=== PATIENT | female | born 1940 | race Caucasian/White ===

== ENCOUNTER 2019-02-16 12:57 | Emergency (ER) | payer MEDICARE, MEDICAID, SELFPAY ==
[2019-02-16 13:00] VITALS: BP 138/88; PULSE 71; RESP 16; TEMP 36.6; O2SAT 97
--- NOTE | 2019-02-16 13:17 | ED.GENADUL_ITS ---
Discharge Plan Disposition Patient Disposition: HOME Condition: Stable Discharge Details Chief Complaint: Vascular Clinical Impression: Acute superficial venous thrombosis of left lower extremity Primary Care Provider: Gerardo Alves ED Provider: Emily Lopez Home Meds and New Rx's Prescriptions: Discontinued ibuprofen 200 MG tablet 200 mg PO Q4H PRN RF: 0 No Action metoprolol succinate [Toprol XL] 200 mg tablet extended release 24 hr 200 mg PO DAILY Qty: 90 RF: 3 nitroglycerin [Nitrostat] 0.3 mg tablet, sublingual 0.3 mg Sublingual as directed Qty: 100 RF: 6 hydrocodone-acetaminophen 5-325 mg tablet 1 tab PO Q6H MDD 20 mg hydrocodone PRN (Reason: pain) Qty: 20 RF: 0 acetaminophen [Tylenol Arthritis Pain] 650 MG tablet extended release 650 mg PO BID PRNQty: 60 RF: 0 ezetimibe [Zetia] 10 MG tablet 10 mg PO DAILY RF: 0 aspirin [Aspir-81] 81 MG tablet,delayed release (DR/EC) 81 mg PO DAILY 100 Days Qty: 100 RF: 3 levothyroxine 25 mcg tablet 25 mcg PO DAILY Qty: 90 RF: 3 amlodipine 5 mg tablet 5 mg PO DAILY Qty: 90 RF: 3 isosorbide mononitrate 120 mg tablet extended release 24 hr 120 mg PO DAILY RF: 0 furosemide 20 mg tablet 20 mg PO DAILY RF: 0 nitroglycerin 0.4 mg/hr patch 24 hour 1 patch TD DAILY RF: 0 hydrochlorothiazide 12.5 mg tablet 12.5 mg PO DAILY Qty: 90 RF: 3 rivaroxaban 20 mg tablet 20 mg PO DAILY Qty: 60 RF: 0 Discharge Instructions Instructions: Rivaroxaban (By mouth), Deep Venous Thrombosis (ED) Additional Instructions: Please return immediately to the emergency department if you develop any new or worsening symptoms, if your condition does not improve as expected, or if you become otherwise concerned. It is extremely important that you call as soon as possible to schedule an appointment to be seen in follow-up for this visit by your primary care doctor. Referrals: Gerardo Alves DO [Primary Care Provider] - Discharge Data Discharge Date/Time-TO BE ENTERED AT DEPARTURE: 02/16/19 15:56 Medical Decision Making Lori Owen is a 78 y/o woman with history of hypothyroidism, coronary artery disease status post stent, hyperlipidemia who presented to the emergency department with left lower leg pain, swelling, redness. On exam patient is very well and nontoxic appearing. Benign cardiopulmonary exam. Approximately 8 cm area of localized edema tenderness and induration with faint overlying erythema to the left proximal medial lower leg. Chronic peripheral edema and varicose veins bilaterally. DP pulses intact and symmetric. Concern for superficial venous thrombosis versus deep venous thrombosis. Doubt cellulitis. Exam/history is not consistent with abscess, myositis, sepsis, acute arterial pathology, acute bony pathology, necrotizing fasciitis. Plan for ultrasound. US shows superficial venous thrombosis of the saphenous vein. Clot would be considered complicated as it extends further than 5 cm. Per current recommendations, plan to treat with 10 mg Xarelto daily. No evidence of cellulitis or phlebitis. Plan for screening labs. Lab work okay, will continue with Xarelto. I had a lengthy discussion with the patient regarding return to emergency department precautions, home care, and importance of outpatient follow-up with her PCP. Patient verbalized understanding the plan was amenable. All questions were answered. Patient was discharged home with clear plan for outpatient follow-up. Medical Records Medical records reviewed: Yes I reviewed the patient's medical records. Imaging Data Radiologic Study: Attestation: I personally reviewed and interpreted this imaging study as follows: Radiologist's impression: LEFT LOWER EXTREMITY ULTRASOUND: The saphenous vein is dilated and contains thrombus extending from just above the knee through the ankle. Femoral and popliteal veins and deep calf veins appear free of thrombus. There are reactive lymph nodes in the groin region. IMPRESSION: Superficial venous thrombosis in the saphenous vein. Lab Data Lab results reviewed: Yes I reviewed the patient's lab results. Laboratory Tests Range/Units 02/16/19 02/16/19 02/16/19 14:59 14:59 14:59 WBC (4.4-10.8) k/cumm 7.85 RBC (4.00-5.20) m/cumm 4.51 Hgb (12.0-15.5) g/dL 14.0 Hct (36.0-46.0) % 42.9 MCV (80-95) fL 95.1 H MCH (27.0-33.0) pg 31.0 MCHC (32.0-36.0) g/dL 32.6 RDW (11.7-14.6) % 13.7 Plt Count (130-400) x1000/uL 230 MPV (8.0-11.0) fL 10.0 Immature Gran % 0.1 Neutrophils % 72.0 Lymphocytes % 17.1 Monocytes % 7.8 Eosinophils % 2.9 Basophils % 0.1 Absolute Neutrophils (1.2-6.7) k/cumm 5.65 Absolute Lymphocytes (1.2-3.4) k/cumm 1.34 Absolute Monocytes (0.11-0.7) k/cumm 0.61 Absolute Eosinophils (0.0-0.7) k/cumm 0.23 Absolute Basophils (0.0-0.2) k/cumm 0.01 PT (9.3-11.0) sec 9.6 INR (0.9-1.1) 1.0 Sodium (136-145) mmol/L 142 Potassium (3.5-5.1) mmol/L 4.1 Chloride (98-107) mmol/L 103 Carbon Dioxide (21.0-32.0) mmol/L 29.6 Anion Gap (3-11) mmol/L 9.4 BUN (7-18) mg/dL 14 Creatinine (0.55-1.02) mg/dL 0.59 Estimated GFR/1.73 m2 (mL/min/1.73m2) >= 60.00 Glucose (70-100) mg/dL 96 Calcium (8.5-10.1) mg/dL 9.1 Total Bilirubin (0.2-1.0) mg/dL 0.4 AST (15-37) U/L 16 ALT (14-59) U/L 21 Alkaline Phosphatase (46-116) U/L 78 Total Protein (6.4-8.2) g/dL 8.0 Albumin (3.4-5.0) g/dL 4.0 HPI General Mode of arrival: ambulatory . Date/Time Provider Initiated Documentation: 02/16/19 13:13 . Limitations to Documentation: no limitations . Information obtained by: patient, RN notes reviewed and old records reviewed . HPI Narrative: Lori Owen is a 78 y/o woman with history of coronary artery disease status post stent, hyperlipidemia, hypothyroidism, hypertension presenting to the emergency department with leg pain and swelling. Patient reports that she noticed pain and swelling yesterday to her left medial proximal lower leg. She reports that she noticed redness to the site this morning, and pain has been worsening. Patient is concerned that she may have a blood clot. Patient reports that she has chronic significant bilateral lower extremity peripheral edema which is unchanged aside from focal swelling as above. Patient reports that otherwise she feels very well in her usual state of health. She reports no new fever, vomiting, diarrhea, shortness of breath, cough, numbness, weakness, or any other pain. Has been eating and drinking as usual. No recent illness. No recent travel or mobilization. Patient currently takes daily aspirin and no other anticoagulation. She has no history of blood clots. Related Data Home Medications Medication Instructions Recorded Confirmed acetaminophen [Tylenol Arthritis 650 mg PO BID PRN #60 tab 02/26/14 02/20/19 Pain] ezetimibe [Zetia] 10 mg PO DAILY tab-cap 07/02/14 02/20/19 aspirin [Aspir-81] 81 mg PO DAILY 100 Days #100 tab 09/06/17 02/20/19 levothyroxine 25 mcg tablet 25 mcg PO DAILY #90 tab 04/24/18 02/20/19 metoprolol succinate 200 mg 200 mg PO DAILY #90 tab 05/19/18 02/20/19 tablet,extended release 24 hr nitroglycerin 0.3 mg sublingual 0.3 mg SUBLINGUAL as directed #100 05/19/18 02/20/19 tablet tab amlodipine 5 mg tablet 5 mg PO DAILY #90 tab-cap 05/27/18 02/20/19 furosemide 20 mg tablet 20 mg PO DAILY tab 07/04/18 02/20/19 isosorbide mononitrate 120 mg 120 mg PO DAILY 07/04/18 02/20/19 tablet,extended release 24 hr nitroglycerin 0.4 mg/hr 1 patch TD DAILY 11/04/18 02/20/19 transdermal 24 hour patch hydrochlorothiazide 12.5 mg tablet 12.5 mg PO DAILY #90 tab 12/04/18 02/20/19 rivaroxaban 20 mg PO DAILY #60 tab 02/18/19 02/20/19 hydrocodone 5 mg-acetaminophen 325 1 tab PO Q6H PRN #20 tab MDD 20 mg 02/20/19 02/20/19 mg tablet hydrocodone Previous Rx's Medication Instructions Recorded aspirin [Aspir-81] 81 mg PO DAILY 100 Days #100 tab 09/06/17 levothyroxine 25 mcg tablet 25 mcg PO DAILY #90 tab 04/24/18 metoprolol succinate 200 mg 200 mg PO DAILY #90 tab 05/19/18 tablet,extended release 24 hr nitroglycerin 0.3 mg sublingual 0.3 mg SUBLINGUAL as directed #100 05/19/18 tablet tab amlodipine 5 mg tablet 5 mg PO DAILY #90 tab-cap 05/27/18 hydrochlorothiazide 12.5 mg tablet 12.5 mg PO DAILY #90 tab 12/04/18 rivaroxaban 20 mg PO DAILY #60 tab 02/18/19 hydrocodone 5 mg-acetaminophen 325 1 tab PO Q6H PRN #20 tab MDD 20 mg 02/20/19 mg tablet hydrocodone Allergies Allergy/AdvReac Type Severity Reaction Status Date / Time codeine Allergy Unknown difficulty Verified 02/20/19 09:05 breathing morphine Allergy Unknown neck Verified 02/20/19 09:05 swelling at marva atorvastatin AdvReac Intermediate muscle and Verified 02/20/19 09:05 joint pain isosorbide AdvReac Intermediate Headache Verified 02/20/19 09:05 lisinopril AdvReac Intermediate possible Verified 02/20/19 09:[address] rosuvastatin calcium AdvReac Intermediate MUSCLE/JOINT Verified 02/20/19 09:05 [From Crestor] PAIN pravastatin AdvReac Unknown knee pain Verified 02/20/19 09:05 simvastatin AdvReac Unknown muscle Verified 02/20/19 09:05 pain distal General Stated Complaint: GenMedical TOYA: 4 Review of Systems Review of Systems Constitutional: denies fevers Eyes: denies eye pain ENT: denies facial pain, dental pain, sore throat Cardiovascular: denies chest pain, reports chronic unchanged bilateral lower leg edema Respiratory: denies SOB, cough GI: denies abdominal pain, vomiting, diarrhea : denies flank pain MSK: denies back pain, neck pain, arthralgias, reports pain to the left lower leg as per HPI Skin: denies rash Neuro: denies headaches, numbness, weakness PFSH Medical History (Updated 02/20/19 @ 09:28 by Gerardo Alves DO) Greater saphenous vein embolism (Acute) Surgical History Abdominal hysterectomy (~1971) cardiac catherization (07/08/15) [facility] [place] coronaries iwth previous stent patent Excision lesion R neck ulcerated (02/15/15) Dr. 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 Pets and animals: Yes Pets and animals: cat(s) What type of physical activity do you participate in: walking Frequency: 3-4 times per week Do you feel safe at home: Yes Do you feel safe in your relationship?: Yes Exam Narrative Exam Narrative: Constitutional: well and [id number], pleasant, conversing normally HENT: head atraumatic/normocephalic/normal inspection, mucous membranes moist Eyes: conjunctiva normal, sclera normal, pupils 3mm b/l Neck: no stridor, normal ROM, trachea midline Chest: normal inspection Resp: normal work of breathing, LCTAB Cardio: normal rate, normal rhythm, no murmur appreciated Back: normal inspection, no rash Skin: warm, dry, normal color, no rash Neuro: alert, not altered, grossly non-focal, normal tone Ext: Approximately 8 cm area of localized edema tenderness and induration with faint overlying erythema to the left proximal medial lower leg. Chronic peripheral edema and varicose veins bilaterally. DP pulses intact and symmetric. No posterior calf tenderness to palpation. Psych: normal mood, normal affect, normal behavior Course Vital Signs Temperature 36.6 C 02/16/19 13:00 Pulse 71 02/16/19 13:00 Respiratory Rate 16 02/16/19 13:00 Blood Pressure 138/88 02/16/19 13:00 Pulse Oximetry 97 02/16/19 13:00 Temperature 36.6 C 02/16/19 13:00 Temperature Source Skin 02/16/19 13:00 Pulse 71 02/16/19 13:00 Respiratory Rate 16 02/16/19 13:00 Respiratory Effort Non-Labored 02/16/19 13:04 Blood Pressure 138/88 02/16/19 13:00 Pulse Oximetry 97 02/16/19 13:00 Oxygen Delivery Method Room Air 02/16/19 13:00 Oxygen Flow Rate 0 02/16/19 13:00 Pain Level 5 02/16/19 13:00 Comment 02/16/19 13:00
--- NOTE | 2019-02-16 13:20 | DI.US_ITS ---
SYMPTOM/DIAGNOSIS: LEG PAIN, SWELLING LEFT LOWER EXTREMITY ULTRASOUND: The saphenous vein is dilated and contains thrombus extending from just above the knee through the ankle. Femoral and popliteal veins and deep calf veins appear free of thrombus. There are reactive lymph nodes in the groin region. IMPRESSION: Superficial venous thrombosis in the saphenous vein.
[2019-02-16] MEDS: Rivaroxaban 10 MG TABLET PO (14:54)
[2019-02-16 14:56] VITALS: RESP 18
[2019-02-16 15:02] LABS: Abs Immature Grans 0.01 k/cumm (0.0-0.09); Absolute Basophil Count 0.01 k/cumm (0.0-0.2); Absolute Eosinophil Count 0.23 k/cumm (0.0-0.7); Absolute Lymphocyte Count 1.34 k/cumm (1.2-3.4); Absolute Monocyte Count 0.61 k/cumm (0.11-0.7); Absolute Neutrophil Count 5.65 k/cumm (1.2-6.7); Basophils % 0.1; Eosinophils % 2.9; HCT 42.9 % (36.0-46.0); Immature Grans % 0.1; Lymphocytes % 17.1; Mean Corp. HGB Concentration 32.6 g/dL (32.0-36.0); Mean Corpuscular Volume 95.1 fL (80-95); Monocytes % 7.8; Platelet Count 230 x1000/uL (130-400); RBC 4.51 m/cumm (4.00-5.20); RBC Distribution Width 13.7 % (11.7-14.6); White Blood Cell Count 7.85 k/cumm (4.4-10.8)
[2019-02-16 15:10] VITALS: BP 109/73; PULSE 67; RESP 18; TEMP 36.7; O2SAT 97
[2019-02-16 15:14] LABS: Prothrombin Time 9.6 sec (9.3-11.0)
[2019-02-16 15:18] LABS: ALT 21 U/L (14-59); AST 16 U/L (15-37); Alkaline Phosphatase 78 U/L (46-116); Anion Gap 9.4 mmol/L (3-11); BUN 14 mg/dL (7-18); Bilirubin, Total 0.4 mg/dL (0.2-1.0); CO2 29.6 mmol/L (21.0-32.0); CREATININE 0.59 mg/dL (0.55-1.02); Calcium 9.1 mg/dL (8.5-10.1); Chloride 103 mmol/L (98-107); Glucose 96 mg/dL (70-100); Potassium 4.1 mmol/L (3.5-5.1); Sodium 142 mmol/L (136-145)
--- NOTE | 2019-02-16 17:34 | NUR.NOTE ---
Referral faxed to [facility], Dr. Alves.Nursing Note:
== END 2019-02-16 15:56 | disposition home or self-care (01) ==
PROVIDERS: Emergency Provider Student in an Organized Health Care Education/Training Program; PCP Family Medicine
DX: I82.812 Embolism and thrombosis of superficial veins of left lower extremity (principal); I83.899 Varicose veins of unspecified lower extremity with other complications; I10 Essential (primary) hypertension; Z79.82 Long term (current) use of aspirin
CPT/HCPCS: 36415; 80053; 99284; 85025; 85610; 93971

== ENCOUNTER 2019-02-18 09:54 | Emergency (ER) | payer MEDICARE, MEDICAID, SELFPAY ==
[2019-02-18 09:56] VITALS: BP 142/95; PULSE 95; RESP 18; TEMP 36.7; O2SAT 97
--- NOTE | 2019-02-18 10:01 | DI.US_ITS ---
SYMPTOM/DIAGNOSIS: KNOWN DVT, PAIN IS MOVING PROXIMAL LEFT LOWER EXTREMITY ULTRASOUND: Comparison is made with 02/16/19. The deep veins of the left lower extremity show normal compression, augmentation and color flow. There is no evidence of a deep venous thrombus. There is thrombus again seen in the greater saphenous vein. There does appear to be mild progression of the thrombus proximally. No involvement of the saphenofemoral junction is seen. Note is made of a 5 by 1.3 by 3.8 cm. Sosa's cyst. IMPRESSION: 1. Slight proximal extension of the previously noted greater saphenous vein thrombophlebitis. 2. No evidence of a left lower extremity deep venous thrombus. The findings were discussed with Dr Solorzano of the ER on the date of the examination.
--- NOTE | 2019-02-18 10:08 | W.ED.GENAD ---
Discharge Plan Disposition Patient Disposition: HOME Condition: Good Discharge Details Chief Complaint: Recheck Clinical Impression: DVT (deep venous thrombosis) Primary Care Provider: Gerardo Alves ED Provider: Barrington Solorzano Home Meds and New Rx's Prescriptions: New rivaroxaban 20 mg tablet 20 mg PO DAILY Qty: 60 RF: 0 Continued metoprolol succinate [Toprol XL] 200 mg tablet extended release 24 hr 200 mg PO DAILY Qty: 90 RF: 3 nitroglycerin [Nitrostat] 0.3 mg tablet, sublingual 0.3 mg Sublingual as directed Qty: 100 RF: 6 acetaminophen [Tylenol Arthritis Pain] 650 MG tablet extended release 650 mg PO BID PRNQty: 60 RF: 0 ezetimibe [Zetia] 10 MG tablet 10 mg PO DAILY RF: 0 aspirin [Aspir-81] 81 MG tablet,delayed release (DR/EC) 81 mg PO DAILY 100 Days Qty: 100 RF: 3 levothyroxine 25 mcg tablet 25 mcg PO DAILY Qty: 90 RF: 3 amlodipine 5 mg tablet 5 mg PO DAILY Qty: 90 RF: 3 isosorbide mononitrate 120 mg tablet extended release 24 hr 120 mg PO DAILY RF: 0 furosemide 20 mg tablet 20 mg PO DAILY RF: 0 nitroglycerin 0.4 mg/hr patch 24 hour 1 patch TD DAILY RF: 0 hydrochlorothiazide 12.5 mg tablet 12.5 mg PO DAILY Qty: 90 RF: 3 Discontinued rivaroxaban 10 mg tablet 10 mg PO DAILY Qty: 30 RF: 0 Discharge Instructions Instructions: Deep Venous Thrombosis (ED) Additional Instructions: At this time your blood clot is still near saphenous vein, does not extended significantly closer to the major vessels. However because of its of location we will recommend increasing your Xarelto/rivaroxaban to 20 mg daily. Please avoid any ibuprofen, or spicy foods. If you notice any worsening of your symptoms, or any new symptoms such as vomiting, diarrhea, fever, chills, shortness of breath, chest pain, numbness, weakness, or fainting , please return immediately to the emergency department for reevaluation. Please follow up with your primary care provider as soon as possible for reassessment and reevaluation. As always, it was a pleasure participating in your medical care today. Referrals: Gerardo Alves DO [Primary Care Provider] - Medical Decision Making This is a 78-year-old female with a past medical history of coronary artery disease with stent, hyperlipidemia, and a recently diagnosed left lower extremity DVT who was started on Xarelto and is been taking a daily as directed. Initially there was tenderness at the medial aspect of her left calf, however now the tenderness has transitioned proximally to the medial aspect of the knee and slightly higher. Patient is concerned about this transition. Currently the patient shows no evidence of significant neurologic or vascular compromise, mild edema is equivalent bilaterally. Vascular exam is otherwise unremarkable. Concern for enlargement of clot. Patient has no history of malignancy, and no clear clinical indication at this time for Lovenox over Xarelto. With no chest pain, shortness of breath, tachypnea, hypoxemia, pleuritic chest pain or any chest symptoms whatsoever, I do not feel that further cardiac or pulmonary evaluation is indicated clinically at this time. 11:34 AM Patient's ultrasound shows the clot still present in the saphenous vein, distal to the bifurcation. No clinical evidence of a significant DVT at this time, still notably superficial. However with the transition, I do feel that treatment 20 mg daily of Xarelto he is indicated at this time. We will increase her dosing to this. She does have follow-up in 48 hours with her PCP. She continues to demonstrate stable vital signs with no clinical evidence of pulmonary complaint. She is hemodynamically stable. Patient will be discharged home with close follow-up. We discussed red flags which return. I have extensively reviewed the treatment plan and discharge instructions with the patient. I have addressed all patient concerns at this time. The patient was made aware of what symptoms to monitor for that would warrant a return to the emergency department. Discussed the plan with the patient, they demonstrate verbal understanding and agreement with our assessment and plan at this time. HPI General Date/Time Provider Initiated Documentation: 02/18/19 09:55. HPI Narrative: This is a 78 y/o woman with history of hypothyroidism, coronary artery disease status post stent, hyperlipidemia, with recent diagnosis of DVT on 02/16/2019 and started on Xarelto 10 mg daily. She has been taking this as directed. DVT was noted in the left lower extremity. No history of cancer malignancy. Patient states that she had mild tenderness previously in her left calf on the medial aspect however last night and today she noticed that she now has mild pain and tenderness in the medial aspect of the left knee, and slightly more proximally. She denies any chest pain, chest heaviness, shortness of breath, arm, neck, or shoulder pain. She denies any exertional dyspnea. She has been taking her medication daily, at the same time every day with a consistent amount of food. She denies any medical noncompliance. She has no other complaints at this time. No other modifying factors. Related Data Home Medications Medication Instructions Recorded Confirmed acetaminophen [Tylenol Arthritis 650 mg PO BID PRN #60 tab 02/26/14 02/16/19 Pain] ezetimibe [Zetia] 10 mg PO DAILY tab-cap 07/02/14 02/18/19 aspirin [Aspir-81] 81 mg PO DAILY 100 Days #100 tab 09/06/17 02/18/19 levothyroxine 25 mcg tablet 25 mcg PO DAILY #90 tab 04/24/18 02/18/19 metoprolol succinate 200 mg 200 mg PO DAILY #90 tab 05/19/18 02/18/19 tablet,extended release 24 hr nitroglycerin 0.3 mg sublingual 0.3 mg SUBLINGUAL as directed #100 05/19/18 02/18/19 tablet tab amlodipine 5 mg tablet 5 mg PO DAILY #90 tab-cap 05/27/18 02/18/19 furosemide 20 mg tablet 20 mg PO DAILY tab 07/04/18 02/18/19 isosorbide mononitrate 120 mg 120 mg PO DAILY 07/04/18 02/18/19 tablet,extended release 24 hr nitroglycerin 0.4 mg/hr 1 patch TD DAILY 11/04/18 02/18/19 transdermal 24 hour patch hydrochlorothiazide 12.5 mg tablet 12.5 mg PO DAILY #90 tab 12/04/18 02/18/19 rivaroxaban 20 mg PO DAILY #60 tab 02/18/19 Previous Rx's Medication Instructions Recorded aspirin [Aspir-81] 81 mg PO DAILY 100 Days #100 tab 09/06/17 levothyroxine 25 mcg tablet 25 mcg PO DAILY #90 tab 04/24/18 metoprolol succinate 200 mg 200 mg PO DAILY #90 tab 05/19/18 tablet,extended release 24 hr nitroglycerin 0.3 mg sublingual 0.3 mg SUBLINGUAL as directed #100 05/19/18 tablet tab amlodipine 5 mg tablet 5 mg PO DAILY #90 tab-cap 05/27/18 hydrochlorothiazide 12.5 mg tablet 12.5 mg PO DAILY #90 tab 12/04/18 rivaroxaban 20 mg PO DAILY #60 tab 02/18/19 Allergies Allergy/AdvReac Type Severity Reaction Status Date / Time codeine Allergy Unknown difficulty Verified 02/18/19 10:07 breathing morphine Allergy Unknown neck Verified 02/18/19 10:07 swelling at marva atorvastatin AdvReac Intermediate muscle and Verified 02/18/19 10:07 joint pain isosorbide AdvReac Intermediate Headache Verified 02/18/19 10:07 lisinopril AdvReac Intermediate possible Verified 02/18/19 10:[address] rosuvastatin calcium AdvReac Intermediate MUSCLE/JOINT Verified 02/18/19 10:07 [From Crestor] PAIN pravastatin AdvReac Unknown knee pain Verified 02/18/19 10:07 simvastatin AdvReac Unknown muscle Verified 02/18/19 10:07 pain distal General Stated Complaint: Recheck TOYA: 3 Review of Systems Review of Systems All systems reviewed & are unremarkable except as noted in HPI and below PFSH Family History Mother Stroke Father Personal history of malignant neoplasm CA of stomach Social History Smoking/Tobacco Use Status: Former Tobacco Use Alcohol Intake: former Drug use: Never Substance use type: does not use Housing: house Number of Children: 2 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 3.ENT: Atraumatic external nose and ears. Moist MM. Neck: Symmetric, trachea midline, No thyromegaly. 4.CVS: +S1/S2, No murmurs or gallops. Peripheral pulses 2+ and equal in all extremities. Brisk capillary refill in all extremities. 5.RESP: Unlabored respiratory effort. Clear to auscultation bilaterally. No wheezes rales or rhonchi 6.GI: Soft, Nontender/Nondistended, No hepatosplenomegaly. No guarding or rebound. 7.MSK: Normocephalic/Atraumatic, Extremities w/o deformity. No cyanosis or clubbing, Normal movement of all extremities. Left lower extremity demonstrates mild tenderness, minimal swelling on the calf, just medial to the left knee also some mild tenderness, swelling, and ropiness. Trace pitting edema of the lower extremity's bilaterally. Dorsalis pedis and posterior tibial pulses +2 bilaterally, capillary refill normal. Temperature equivalent between both feet. 8.Skin: Warm, Dry. No rashes or lesions. 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 Sensation grossly intact, no focal neurologic deficits. 10.Psych: (AAO) x3. Appropriate mood and affect Course Vital Signs Temperature 36.7 C 02/18/19 09:56 Pulse 95 H 02/18/19 09:56 Respiratory Rate 18 02/18/19 09:56 Blood Pressure 142/95 H 02/18/19 09:56 Pulse Oximetry 97 02/18/19 09:56 Temperature 36.7 C 02/18/19 09:56 Temperature Source Skin 02/18/19 09:56 Pulse 95 H 02/18/19 09:56 Respiratory Rate 18 02/18/19 09:56 Respiratory Effort Non-Labored 02/18/19 10:01 Blood Pressure 142/95 H 02/18/19 09:56 Blood Pressure Position Sitting 02/18/19 09:56 Pulse Oximetry 97 02/18/19 09:56 Oxygen Delivery Method Room Air 02/18/19 09:56 Oxygen Flow Rate 0 02/18/19 09:56
== END 2019-02-18 11:41 | disposition home or self-care (01) ==
PROVIDERS: Emergency Provider Student in an Organized Health Care Education/Training Program; PCP Family Medicine
DX: I82.812 Embolism and thrombosis of superficial veins of left lower extremity (principal); M25.562 Pain in left knee; I25.10 Atherosclerotic heart disease of native coronary artery without angina pectoris; Z95.5 Presence of coronary angioplasty implant and graft; Z79.01 Long term (current) use of anticoagulants
CPT/HCPCS: 99284; 93971

== ENCOUNTER 2019-03-19 09:32 | Outpatient (REF) | payer MEDICARE, MEDICAID, SELFPAY ==
[2019-03-24 11:53] LABS: Helicobacter pylori Ag, Feces Negative (NEGAT)
== END 2019-03-19 09:52 ==
LOC: LBN 09:32
PROVIDERS: PCP Family Medicine; Visit Provider Nurse Practitioner
DX: R10.13 Epigastric pain (principal)
CPT/HCPCS: 87338

== ENCOUNTER 2019-05-20 10:15 | Outpatient (CLI) | payer MEDICARE, SELFPAY ==
[2019-05-20 11:53] LABS: ALT 17 U/L (14-59); AST 12 U/L (15-37); Albumin 3.7 g/dL (3.4-5.0); Alkaline Phosphatase 74 U/L (46-116); Anion Gap 9.3 mmol/L (3-11); BUN 11 mg/dL (7-18); Bilirubin, Total 0.5 mg/dL (0.2-1.0); CO2 29.7 mmol/L (21.0-32.0); CREATININE 0.68 mg/dL (0.55-1.02); Calcium 9.1 mg/dL (8.5-10.1); Calculated LDL 142 mg/dL; Chloride 105 mmol/L (98-107); Cholesterol 209 mg/dL (<200); Glucose 93 mg/dL (74-106); HDL Cholesterol 37 mg/dL (40-60); Potassium 4.3 mmol/L (3.5-5.1); Sodium 144 mmol/L (136-145); TSH (W/Ref FT4) 3.46 uIU/mL (0.36-3.74); Triglyceride 152 mg/dL (<150)
== END 2019-05-20 10:35 ==
PROVIDERS: PCP Family Medicine; Visit Provider Family Medicine
DX: I10 Essential (primary) hypertension (principal); E03.9 Hypothyroidism, unspecified; E78.5 Hyperlipidemia, unspecified
CPT/HCPCS: 36415; 80053; 80061; 84443

== ENCOUNTER 2020-04-07 15:16 | Outpatient (REF) | payer MEDICARE, MEDICAID, SELFPAY ==
[2020-04-07 18:24] LABS: Abs Immature Grans 0.01 10^3/uL (0.0-0.06); Absolute Basophil Count 0.03 10^3/uL (0.0-0.2); Absolute Eosinophil Count 0.09 10^3/uL (0.0-0.7); Absolute Lymphocyte Count 1.07 10^3/uL (1.2-3.4); Absolute Monocyte Count 0.48 10^3/uL (0.1-0.8); Absolute Neutrophil Count 3.63 10^3/uL (1.2-6.7); Basophils % 0.6; Eosinophils % 1.7; HCT 41.9 % (36.0-46.0); HGB 13.5 g/dL (11.2-15.7); Immature Grans % 0.2; Lymphocytes % 20.2; MCH 30.5 pg (27.0-33.0); MCHC 32.2 % (32.0-36.0); MCV 94.6 fL (80-95); MPV 10.7 fL (8.0-11.0); Neutrophils % 68.3; Nucleated RBC 0 %; Platelet Count 244 10^3/uL (130-400); RBC 4.43 10^6/uL (3.93-5.22); RDW 13.3 % (11.7-14.6); RDW-SD 46.4 fL; WBC 5.31 10^3/uL (4.4-10.8)
[2020-04-07 18:29] LABS: Hemoglobin A1C 5.8 % (<5.7)
[2020-04-07 18:31] LABS: ALT 17 U/L (14-59); AST 16 U/L (15-37); Albumin 4.1 g/dL (3.4-5.0); Alkaline Phosphatase 76 U/L (46-116); BUN 14 mg/dL (7-18); Bilirubin, Total 0.5 mg/dL (0.2-1.0); CREATININE 0.61 mg/dL (0.55-1.02); Calcium 9.2 mg/dL (8.5-10.1); Calculated LDL 139 mg/dL (<100); Chloride 102 mmol/L (98-107); Cholesterol 208 mg/dL (<200); Glucose 93 mg/dL (74-106); HDL Cholesterol 40 mg/dL (40-60); Potassium 4.2 mmol/L (3.5-5.1); Sodium 142 mmol/L (136-145); TSH (W/Ref FT4) 4.11 uIU/mL (0.36-3.74); Total Protein 7.7 g/dL (6.4-8.2); Triglyceride 147 mg/dL (<150)
[2020-04-07 18:58] LABS: FREE T4 1.02 ng/dL (0.76-1.46)
[2020-04-07 19:10] LABS: ESR 23 mm/hr (0-30)
[2020-04-08 16:54] LABS: Rheumatoid Factor <8.6 IU/mL (<12.0)
[2020-04-11 11:50] LABS: HIV-1/2 Ag & Ab Screen Negative (Negative)
[2020-04-11 12:16] LABS: Hepatitis C Ab w Rflx HCV PCR Negative (Negative)
== END 2020-04-07 15:36 ==
LOC: NCHCN 15:16
PROVIDERS: Visit Provider Nurse Practitioner Family
DX: E03.9 Hypothyroidism, unspecified (principal); I10 Essential (primary) hypertension; E78.5 Hyperlipidemia, unspecified; R73.09 Other abnormal glucose; Z11.4 Encounter for screening for human immunodeficiency virus [HIV]; Z11.59 Encounter for screening for other viral diseases
CPT/HCPCS: 80053; 80061; 85652; 86803; 87389; 83036; 84439; 84443; 85025; 86431

== ENCOUNTER → 2020-04-19 13:25 | Outpatient (BNVA) | payer MEDICARE, MEDICAID, SELFPAY | PROVIDERS: PCP Nurse Practitioner Family; Referring Provider Nurse Practitioner Family; Visit Provider Internal Medicine Cardiovascular Disease | DX: R07.89 Other chest pain; I10 Essential (primary) hypertension; I25.119 Atherosclerotic heart disease of native coronary artery with unspecified angina pectoris | CPT/HCPCS: 99203; 99214 ==

== ENCOUNTER 2020-05-11 21:08 | Outpatient (REF) | payer MEDICARE, MEDICAID, SELFPAY | END 2020-05-11 21:28 | LOC: NCHCN 21:08 | PROVIDERS: PCP Nurse Practitioner Family; Visit Provider Physician Assistant Medical | DX: N39.0 Urinary tract infection, site not specified (principal) | CPT/HCPCS: 87077; 87086; 87186 ==

== ENCOUNTER 2020-06-01 01:18 | Outpatient (CLI) | payer MEDICARE, SELFPAY ==
--- NOTE | 2020-06-01 | DI.DEXA_ITS ---
EXAM: XR DEXA BONE DENSITY W/WO JAMEY CLINICAL HISTORY: SCREENING FOR OSTEOPOROSIS IN POSTMENOPAUSAL WOMAN,Z78.0 TECHNIQUE: Routine DEXA evaluation of the lumbar spine, hip, or forearm. COMPARISON: CR RT HIP COMPLETE AP PELVIS from 11/24/2013 FINDINGS: This DEXA scan was performed on [employer]iro[employer] unit, model horizon C Lumbar Spine total T-score: 0.4 Hip total T-score:-1.2 Forearm total T-score: -1.5 IMPRESSION: Bone mineral density measures in the osteopenia range. Fracture risk is moderate. Note: Any spine fracture indicates 5x risk for subsequent spine fracture and 2x risk for subsequent h ip fracture. World Health Organization criteria for BMD interpretation classify patients: Normal...... T- Score at or above -1.0 Osteopenic... T- Score between -1.0 and -2.5 Osteoporosis... T-Score at or below -2.5
== END 2020-06-01 01:38 ==
PROVIDERS: PCP Nurse Practitioner Family; Visit Provider Nurse Practitioner Family
DX: Z78.0 Asymptomatic menopausal state (principal); M85.89 Other specified disorders of bone density and structure, multiple sites
CPT/HCPCS: 77080

== ENCOUNTER → 2020-10-14 11:04 | Outpatient (BNVA) | payer MEDICARE, SELFPAY | PROVIDERS: PCP Nurse Practitioner Family; Referring Provider Nurse Practitioner Family; Visit Provider Internal Medicine Cardiovascular Disease | DX: I25.10 Atherosclerotic heart disease of native coronary artery without angina pectoris (principal); E78.5 Hyperlipidemia, unspecified; I10 Essential (primary) hypertension | CPT/HCPCS: 99213 ==

== ENCOUNTER → 2021-04-13 10:58 | Outpatient (BNVA) | payer MEDICARE, SELFPAY | PROVIDERS: PCP Nurse Practitioner Family; Referring Provider Nurse Practitioner Family; Visit Provider Internal Medicine Cardiovascular Disease | DX: I25.10 Atherosclerotic heart disease of native coronary artery without angina pectoris (principal); E78.5 Hyperlipidemia, unspecified; I10 Essential (primary) hypertension | CPT/HCPCS: 99213 ==

== ENCOUNTER 2021-06-06 14:36 | Outpatient (REF) | payer MEDICARE, SELFPAY ==
[2021-06-06 15:22] LABS: ALT 17 U/L (14-59); AST 14 U/L (15-37); Albumin 3.9 g/dL (3.4-5.0); Alkaline Phosphatase 68 U/L (46-116); Anion Gap 8.7 mmol/L (3-11); BUN 15 mg/dL (7-18); Bilirubin, Total 0.6 mg/dL (0.2-1.0); CO2 29.3 mmol/L (21.0-32.0); CREATININE 0.7 mg/dL (0.55-1.02); Calculated LDL 161 mg/dL (<100); Chloride 105 mmol/L (98-107); Cholesterol 228 mg/dL (<200); Glucose 108 mg/dL (74-106); HDL Cholesterol 41 mg/dL (40-60); Potassium 3.8 mmol/L (3.5-5.1); Sodium 143 mmol/L (136-145); TSH 2.62 uIU/mL (0.36-3.74); Total Protein 7.2 g/dL (6.4-8.2); Triglyceride 131 mg/dL (<150)
[2021-06-06 16:26] LABS: Hemoglobin A1C 5.6 % (<5.7)
== END 2021-06-06 14:37 | disposition home or self-care (01) ==
LOC: LBN 14:36
PROVIDERS: PCP Nurse Practitioner Family; Visit Provider Physician Assistant
DX: E03.9 Hypothyroidism, unspecified (principal); I10 Essential (primary) hypertension; E78.5 Hyperlipidemia, unspecified; R73.09 Other abnormal glucose
CPT/HCPCS: 80053; 80061; 83036; 84443

== ENCOUNTER → 2021-11-09 13:23 | Outpatient (BNVA) | payer MEDICARE, SELFPAY | PROVIDERS: PCP Nurse Practitioner Family; Referring Provider Nurse Practitioner Family; Visit Provider Internal Medicine Cardiovascular Disease | DX: I25.10 Atherosclerotic heart disease of native coronary artery without angina pectoris (principal); I10 Essential (primary) hypertension | CPT/HCPCS: 99214; 99213 ==

== ENCOUNTER 2022-01-19 20:11 | Emergency (ER) | payer MEDICARE, SELFPAY ==
--- NOTE | 2022-01-19 20:15 | DI.CT_ITS ---
Exam(s) CT THORAX ABD/PEL CTA EXAM: CT THORAX ABD/PEL CTA TECHNIQUE: CT angiography of the chest, abdomen and pelvis was performed with bolus infusion of 100 cc of Omnipaque 350. Axial CT angiography was performed with multi-slice acquisition and multi-planar and/or 3D reconstruc tions. COMPARISON: No exams were available for comparison FINDINGS: The lungs are clear. No pleural effusion. No evidence of pulmonary embolic disease. No thoracic aort ic dissection or aneurysm. Major branches of the thoracic aorta appear normal. No pleural effusion. No mediastinal or hilar adenopathy. Tracheobronchial tree appears intact. No focal hepatic or renal abnormality seen apart from a low-attenuation hepatic lesion previously torsten ntified as a cyst ultrasonographically.. Gallbladder shows apparent stones, and bile ducts are CT no rmal. Pancreas is unremarkable. Spleen is unremarkable. No abdominal aortic aneurysm or dissection. Major branches of the abdominal aorta appear normal. No a bdominal or pelvic adenopathy. Appendix is not specifically visualized but there is no evidence of appendicitis or diverticulitis no significant abdominal wall hernia. No focal bowel pathology. IMPRESSION: No evidence of acute vascular abnormality of the chest, abdomen or pelvis. No other acute abnormaliti es are seen. RADIATION DOSE DELIVERED: 1,010.75mGy.cm Total DLP 1,010.75mGy.cm Total DLP !Error CTDIvol DATA REPOSITORY: All CT scans at this facility are submitted to the National Radiology Data Registry (NRDR) Dose Index Registry (DIR) with the [employer] (ACR). RADIATION OPTIMIZATION: All CT scans at this facility use at least one of these dose optimization te chniques: automated exposure control; mA and/or kV adjustment per patient size (includes targeted exa ms where dose is matched to clinical indication); or iterative reconstruction.
--- NOTE | 2022-01-19 20:15 | RT.EKG_ITS ---
APPROVED REPORT Exam: Resting ECG Reason for Exam: syncope Patient Location: E HR:83 bpm ECG Measurements Heart Rate 83 AXIS OH 229 P 26 QRSd 97 QRS -19 QT 400 T 11 QTc 466 Conclusion Sinus rhythm...normal P axis, V-rate 60- 99 Atrial premature complex...SV complex w/ short R-R interval Prolonged OH interval...OH >220, V-rate 50- 90 Abnormal Electrocardiogram
[2022-01-19 20:20] VITALS: BP 112/82; PULSE 73; RESP 16; TEMP 36.6; O2SAT 97
[2022-01-19 21:15] LABS: Abs Immature Grans 0.02 10^3/uL (0.0-0.06); Absolute Basophil Count 0.03 10^3/uL (0.0-0.2); Absolute Eosinophil Count 0.11 10^3/uL (0.0-0.7); Absolute Lymphocyte Count 1.44 10^3/uL (1.2-3.4); Absolute Monocyte Count 0.72 10^3/uL (0.1-0.8); Absolute Neutrophil Count 4.85 10^3/uL (1.2-6.7); Basophils % 0.4; Eosinophils % 1.5; HCT 36.9 % (36.0-46.0); HGB 12.2 g/dL (11.2-15.7); Immature Grans % 0.3; Lymphocytes % 20.1; MCH 30.7 pg (27.0-33.0); MCHC 33.1 % (32.0-36.0); MCV 93 fL (80-95); Neutrophils % 67.7; Platelet Count 258 10^3/uL (130-400); RBC 3.97 10^6/uL (3.93-5.22); RDW 13.6 % (11.7-14.6); RDW-SD 46.5 fL; WBC 7.17 10^3/uL (4.4-10.8)
--- NOTE | 2022-01-19 21:26 | ED.GENADUL_ITS ---
Discharge Plan Disposition Patient Disposition: HOME Condition: Stable Discharge Details Clinical Impression: Syncope, Chest pain, Gallstones, Hypokalemia, Prolonged NV interval Primary Care Provider: Nahun Eden ED Provider: Sarbjit Lopez Home Meds and New Rx's Prescriptions: No Action nitroglycerin [Nitrostat] 0.3 mg tablet, sublingual 0.3 mg Sublingual as directed Qty: 100 6RF Rx Instructions: for angina metoprolol succinate [Toprol XL] 200 mg tablet extended release 24 hr 200 mg PO DAILY Qty: 90 3RF Rx Instructions: to control blood pressure and angina amlodipine 10 mg tablet 5 mg PO DAILY acetaminophen [Tylenol Arthritis Pain] 650 MG tablet extended release 650 mg PO BID PRNQty: 60 Rx Instructions: DX: ARTHRITIS PAIN, up to 4/day aspirin [Aspir-81] 81 MG tablet,delayed release (DR/EC) 81 mg PO DAILY 100 Days Qty: 100 3RF Rx Instructions: prevent cardiovascular events Discharge Instructions Instructions: Chest Pain (ED), Hypokalemia (ED), Syncope (ED) Additional Instructions: Please take Tylenol for discomfort. Please follow-up with your primary care provider. Call first thing on Saturday to arrange timely follow-up next week. Please rest at home this week with no exertional activities until cleared by your provider. Return to the emerge department immediately for any worsening or new concerning symptoms. Referrals: Nahun Eden [Primary Care Provider] - Discharge Data Discharge Date/Time-TO BE ENTERED AT DEPARTURE: 01/19/22 23:05 Medical Decision Making 81-year-old female here with chest pain that started a week ago. Patient also with syncopal episode 3 days ago. Concern for potential acute aortic dissection versus pulmonary embolism versus arrhythmia. CT of the chest was interpreted by radiology: No thoracic or abdominal aortic aneurysm or dissection. No pulmonary embolism identified. Prominent gallbladder distention with gallstones and sludge. No biliary dilatation. No acute bowel pathology demonstrated. Large varices partially visualized in the right groin. Labs reviewed and mild hypokalemia noted. Patient was given potassium chloride oral replacement. EKG was reviewed interpreted by me: Please see report, prolonged NV interval of 229 is noted. Patient did have recent negative ACS work-up at [facility]. Troponin here is negative. I believe patient's chest pain is musculoskeletal with focal tenderness over her left costochondral junction. All results were discussed with the patient. Plan will be for discharge with close outpatient follow-up with PCP. Consideration should be made for Holter monitor in the outpatient setting. She was encouraged to return immediately should she have any worsening or new concerning symptoms. HPI General Mode of arrival: ambulatory . Date/Time Provider Initiated Documentation: 01/19/22 20:25 . Limitations to Documentation: no limitations . Information obtained by: patient . HPI Narrative: 81-year-old female here with chest pain that started a week ago. Patient also with syncopal episode 3 days ago. Patient had chest pain last week and was seen at outside hospital, [facility], had ACS rule out and was discharged home. 2 days ago she was on the phone at home and had a syncopal episode that was brief. She continues to have some chest discomfort that is localized to her right parasternal area, moderate intensity, sharp, and is worse on palpation. Patient has been under a lot of stress recently with the passing of her and his brother. Patient denies lower extremity edema or shortness of breath. No calf pain. Patient was sent by PCP for work-up with concern for potential aortic dissection. Related Data Home Medications Medication Instructions Recorded Confirmed acetaminophen 650 mg 650 mg PO BID PRN #60 tabs 02/26/14 01/19/22 tablet,extended release (Tylenol Arthritis Pain) aspirin 81 mg tablet,delayed 81 mg PO DAILY 100 days #100 tabs 09/06/17 01/19/22 release (Aspir-) nitroglycerin 0.3 mg sublingual 0.3 mg sublingual as directed #100 05/19/18 01/19/22 tablet (Nitrostat) tabs metoprolol succinate 200 mg 200 mg PO DAILY #90 tabs 04/13/21 01/19/22 tablet,extended release 24 hr (Toprol XL) amlodipine 10 mg tablet 5 mg PO DAILY 11/09/21 01/19/22 Previous Rx's Medication Instructions Recorded aspirin 81 mg tablet,delayed 81 mg PO DAILY 100 days #100 tabs 09/06/17 release (Aspir-) nitroglycerin 0.3 mg sublingual 0.3 mg sublingual as directed #100 05/19/18 tablet (Nitrostat) tabs metoprolol succinate 200 mg 200 mg PO DAILY #90 tabs 04/13/21 tablet,extended release 24 hr (Toprol XL) Allergies Allergy/AdvReac Type Severity Reaction Status Date / Time codeine Allergy Unknown difficulty Verified 01/19/22 20:25 breathing morphine Allergy Unknown neck Verified 01/19/22 20:25 swelling at marva atorvastatin AdvReac Intermediate muscle and Verified 01/19/22 20:25 joint pain isosorbide AdvReac Intermediate Headache Verified 01/19/22 20:25 lisinopril AdvReac Intermediate possible Verified 01/19/22 20:25 cause of dry cough rosuvastatin calcium AdvReac Intermediate MUSCLE/JOINT Verified 01/19/22 20:25 [From Crestor] PAIN pravastatin AdvReac Unknown knee pain Verified 01/19/22 20:25 simvastatin AdvReac Unknown muscle Verified 01/19/22 20:25 pain distal General Stated Complaint: Chest Pain TOYA: 2 Review of Systems All systems reviewed & are unremarkable except as noted in HPI and below Cardiovascular Cardiovascular: Reports as per HPI and Denies dyspnea Respiratory Respiratory: Denies dyspnea PFSH All Active Problems (Updated 01/19/22 @ 22:58 by Sarbjit Lopez MD) Syncope (Chronic) Chest pain (Acute) Gallstones (Acute) Hypokalemia (Acute) Prolonged NV interval (Acute) Coronary arteriosclerosis in [place] artery (Acute) Osteoarthritis of both hands (Acute) Greater saphenous vein embolism (Acute) Epigastric pain (Acute 09/05/15) Retrosternal pain (Acute 01/27/16) Stable angina (Chronic) 05/27/18 Changed to chronic stable angina. [facility] Cardiology Cardiac Cath 01/22/19, non-obstructive CAD Varicose vein of leg (Acute 05/03/15) Peripheral venous insufficiency (Acute 08/28/11) STASIS DERMATITIS L; VARICOSITIES L>R Pain in joint involving multiple sites (Acute 08/28/11) judy hands, r foot, hands, ?back, h/o neck surg Other chest pain (Acute 01/28/17) Osteoarthritis, generalized (Acute 01/27/16) hands, feet, low back knees Hyperlipidemia (Acute 08/28/11) Dr Collazo: GOAL LDL<70, INTOL STATINS (TRIED 3) Hand paresthesia (Acute 04/13/14) bilat, C6 distribution (radial nerve) Generalized osteoarthritis of hand (Acute 04/13/14) Essential hypertension (Acute 10/22/10) GOAL <130/85 DUE TO VASC DIS Atherosclerosis of [place] coronary artery of [place] heart with angina pectoris (Acute 11/06/10) 10/2010 DE STENT; EF 40%; TORKELSON F/U IRMA; cath 07/08/15 no new obstruction, stent open Acquired hypothyroidism (Acute 08/28/11) Abnormal radiographic examination (Acute) Surgical History Abdominal hysterectomy (~1972) cardiac catherization (07/08/15) [facility] clean coronaries iwth previous stent patent Excision lesion R neck ulcerated (02/15/15) Dr. 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 Pets and animals: Yes Pets and animals: cat(s) Current gender identity: female What is your relationship status?: How often do you talk on the phone with friends or family?: three or more times per week Panel score (0-1 are the most socially isolated patients): 2 What type of physical activity do you participate in: walking Frequency: 3-4 times per week Seatbelt use: always Drive intox or ride w/intox 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 load 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: No Working smoke detector in home: Yes Carbon monox detector in home: Yes Do you feel safe at home: Yes Do you feel safe in your relationship?: Yes Exam Const General: cooperative and no acute distress HENMT Mouth: moist mucous membranes Eyes Conjunctivae: normal conjunctivae Sclera: normal sclerae Neck Neck: trachea midline and supple Chest Chest: no crepitus and tenderness other (Left parasternal, reproduces pain) Resp Effort & Inspection: normal respiratory effort Auscultation: clear to auscultation bilaterally, no rales, no rhonchi and no wheezes Cardio Rate: regular rate and not tachycardic Rhythm: regular rhythm Heart Sounds: no murmurs GI Palpation: soft, not firm, no guarding, no masses, not rigid and nontender Skin General skin exam: no rashes or lesions noted Neuro General: patient alert, patient awake and tone normal Extrem General: no edema Psych Appearance: grossly normal Mental Status: mental status grossly normal Speech and Movement: speech and movement normal Course Vital Signs Vital signs: Vital Signs Temperature 36.6 C 01/19/22 20:20 Pulse 73 01/19/22 20:20 Respiratory Rate 16 01/19/22 20:20 Blood Pressure 112/82 01/19/22 20:20 Pulse Oximetry 97 01/19/22 20:20 Temperature 36.6 C 01/19/22 20:20 Temperature Source Tympanic 01/19/22 20:20 Pulse 73 01/19/22 20:20 Respiratory Rate 16 01/19/22 20:20 Respiratory Effort Non-Labored 01/19/22 20:27 Respiratory Depth Normal 01/19/22 20:27 Respiratory Pattern Normal 01/19/22 20:27 Blood Pressure 112/82 01/19/22 20:20 Pulse Oximetry 97 01/19/22 20:20 Pain Level 5 01/19/22 20:20 Lab/Test Results Lab/Test Results: Laboratory Tests Range/Units 01/19/22 20:50 WBC (4.4-10.8) 10^3/uL 7.17 RBC (3.93-5.22) 10^6/uL 3.97 Hgb (11.2-15.7) g/dL 12.2 Hct (36.0-46.0) % 36.9 MCV (80-95) fL 93 MCH (27.0-33.0) pg 30.7 MCHC (32.0-36.0) % 33.1 RDW (11.7-14.6) % 13.6 Plt Count (130-400) 10^3/uL 258 MPV (8.0-11.0) fL 10.0 Immature Gran % 0.3 Neutrophils % 67.7 Lymphocytes % 20.1 Monocytes % 10.0 Eosinophils % 1.5 Basophils % 0.4 Nucleated RBC % (0.0-0.3) % 0.0 Absolute Neutrophils (1.2-6.7) 10^3/uL 4.85 Absolute Lymphocytes (1.2-3.4) 10^3/uL 1.44 Absolute Monocytes (0.1-0.8) 10^3/uL 0.72 Absolute Eosinophils (0.0-0.7) 10^3/uL 0.11 Absolute Basophils (0.0-0.2) 10^3/uL 0.03
[2022-01-19] MEDS: Omnipaque 350 MG/ML 100 ML BTL IJ (21:31)
[2022-01-19 21:32] LABS: PTT Activated 26.1 sec (21.0-27.5); Prothrombin Time 10.4 sec (9.3-11.0)
[2022-01-19] MEDS: Normal Saline Flush 10 ML SYR IVP (21:32)
[2022-01-19 21:33] LABS: ALT 16 U/L (14-59); AST 15 U/L (15-37); Albumin 3.6 g/dL (3.4-5.0); Alkaline Phosphatase 66 U/L (46-116); BUN 21 mg/dL (7-18); Bilirubin, Total 0.4 mg/dL (0.2-1.0); CREATININE 0.8 mg/dL (0.55-1.02); Calcium 8.9 mg/dL (8.5-10.1); Chloride 101 mmol/L (98-107); Glucose 124 mg/dL (74-106); Potassium 3.2 mmol/L (3.5-5.1); Sodium 137 mmol/L (136-145); Total Protein 7.6 g/dL (6.4-8.2); Troponin I < 50 ng/L (<or=60)
--- NOTE | 2022-01-19 22:01 | DI.VRAD_ITS ---
PROCEDURE INFORMATION: Exam: CTA Chest With Contrast CTA Abdomen and Pelvis With Contrast Exam date and time: 01/19/2022 9:16 PM Age: 81 years old Clinical indication: Other: Not specified; Abdominal pain; Acute; Patient HX: Syncope TECHNIQUE: Imaging protocol: Computed tomographic angiography of the chest with contrast. Computed tomographic angiography of the abdomen and pelvis with contrast. 3D rendering (Not supervised by radiologist): MIP and/or 3D reconstructed images were created by the technologist. Radiation optimization: All CT scans at this facility use at least one of these dose optimization techniques: automated exposure control; mA and/or kV adjustment per patient size (includes targeted exams where dose is matched to clinical indication); or iterative reconstruction. Contrast material: OMNIPAQUE 350; Contrast volume: 100 ml; Contrast route: INTRAVENOUS (IV); COMPARISON: CR BARIUM SWALLOW UGI PA CXR 09/14/2015 8:30 AM FINDINGS: VASCULATURE: Pulmonary arteries: No pulmonary embolism identified. Aorta: No thoracic or abdominal aortic aneurysm or dissection. Mild atherosclerotic calcification. Celiac trunk and mesenteric arteries: Mild atherosclerotic calcification in the celiac and superior mesenteric arteries, both widely patent. Inferior mesenteric artery obscured at its origin, otherwise patent. Renal arteries: Mild atherosclerotic calcifications in the renal arteries, widely patent bilaterally. Right iliac arteries: Right common iliac and external iliac arteries widely patent. Mild atherosclerotic calcification in the right common iliac and internal iliac arteries with mild irregular narrowing of the internal iliac artery. Left iliac arteries: Left common iliac and external iliac arteries widely patent. Mild atherosclerotic calcification in the left common and internal iliac arteries. Left internal iliac artery widely patent. Thyroid: Normal sized thyroid gland. 8 mm indeterminate hypoattenuating left thyroid lesion on image 69 of series 6, not well characterized by the current exam but likely a colloid cyst or hypoattenuating nodule. CHEST: Lungs: Mild dependent atelectasis. No pulmonary consolidation. 3 mm right middle lobe pulmonary nodule, image 347 of series 6. Pleural spaces: No pleural effusion or pneumothorax. Heart: Overall normal sized heart. Mild coronary artery calcification. Diaphragm: 2.5 cm hiatal hernia. ABDOMEN AND PELVIS: Liver: Small indeterminate hypoattenuating hepatic lesion, incompletely characterized but most likely a small cyst or hemangioma. Gallbladder and bile ducts: Prominent gallbladder distension. Layering hyperdense material in the gallbladder, probably a combination of stones and sludge. No biliary dilatation. Pancreas: Normal appearing pancreas. Spleen: Normal appearing spleen. Adrenal glands: Normal appearing adrenal glands. Kidneys and ureters: Small indeterminate hypoattenuating right renal lesion, incompletely characterized but statistically most likely a small renal cyst. Otherwise normal-appearing kidneys. No hydronephrosis. No obstructing ureteral stones. Stomach and bowel: No oral contrast. Stomach partially decompressed. Two duodenal diverticula incidentally noted. No small bowel dilatation to suggest obstruction. Normal-appearing colon. No evidence of diverticulitis or colitis. Appendix: Appendix not identified, obscured if present. Correlation with surgical history recommended. If there is clinical concern for acute appendicitis and the patient still has an appendix, additional evaluation would be recommended. Intraperitoneal space: No gross ascites or free air. Urinary bladder: Normal appearing urinary bladder. Reproductive: Prior hysterectomy. Ovaries partially obscured but grossly normal in size. Lymph nodes: No pathologically enlarged mediastinal or hilar lymph nodes. No pathologically enlarged mesenteric, retroperitoneal, or pelvic sidewall lymph nodes. Bones/joints: No acute fracture seen among the bones of the chest. Thoracic degenerative change with large anterior osteophytes at multiple levels. No acute fracture seen among the bones of the abdomen or pelvis. Lumbar degenerative change with discogenic degeneration, vacuum disc deformities, and facet arthrosis at multiple levels. Lower anterior cervical fixation hardware partially visualized. Soft tissues: No gross soft tissue mass or fluid collection seen in the chest wall. Diastasis recti. Tiny fat-containing ventral hernia at the umbilicus, doubtful clinical significance. Large subcutaneous varices partially visualized in the right groin, images 107-118 of series 4. IMPRESSION: 1. No thoracic or abdominal aortic aneurysm or dissection. 2. No pulmonary embolism identified. 3. Prominent gallbladder distension with gallstones and sludge. No biliary dilatation. 4. No acute bowel pathology demonstrated. 5. Large varices partially visualized in the right groin Dictated and Authenticated by: Og Bernard MD. Ordering:STIVEN Schaffer MD
[2022-01-19] MEDS: Potassium Chloride 20 MEQ TABCR 40 MEQ PO (22:37)
[2022-01-19 22:59] VITALS: BP 117/68; PULSE 87; RESP 18; TEMP 36.7; O2SAT 97
== END 2022-01-19 23:05 | disposition home or self-care (01) ==
PROVIDERS: Emergency Provider Student in an Organized Health Care Education/Training Program; PCP Physician Assistant
DX: I44.0 Atrioventricular block, first degree (principal); K80.20 Calculus of gallbladder without cholecystitis without obstruction; R55 Syncope and collapse; E87.6 Hypokalemia; Z79.82 Long term (current) use of aspirin; Z87.891 Personal history of nicotine dependence
CPT/HCPCS: 71275; 80053; 93005; 99284; 74174; 84484; 85025; 85610; 85730; 93010; 99285; J3490

== ENCOUNTER 2022-01-24 15:05 | Outpatient (REF) | payer MEDICARE, SELFPAY ==
[2022-01-24 20:06] LABS: BUN 14 mg/dL (7-18); CREATININE 0.6 mg/dL (0.55-1.02); Calcium 8.9 mg/dL (8.5-10.1); Cholesterol 171 mg/dL (<200); Glucose 104 mg/dL (74-106); HDL Cholesterol 36 mg/dL (40-60); Triglyceride 185 mg/dL (<150)
[2022-01-24 20:07] LABS: Anion Gap 8.9 mmol/L (3-11); CO2 26.1 mmol/L (21.0-32.0); Calculated LDL 98 mg/dL (<100); Chloride 105 mmol/L (98-107); Magnesium 2.3 mg/dL (1.8-2.4); Potassium 3.3 mmol/L (3.5-5.1); Sodium 140 mmol/L (136-145); TSH (W/Ref FT4) 2.86 uIU/mL (0.36-3.74)
[2022-01-24 20:08] LABS: Hemoglobin A1C 5.9 % (<5.7)
== END 2022-01-24 15:06 | disposition home or self-care (01) ==
LOC: NCHCN 15:05
PROVIDERS: PCP Physician Assistant; Visit Provider Physician Assistant
DX: R73.03 Prediabetes (principal); E78.5 Hyperlipidemia, unspecified; E87.6 Hypokalemia; E03.9 Hypothyroidism, unspecified
CPT/HCPCS: 80048; 80061; 83036; 83735; 84443

== ENCOUNTER → 2022-02-01 00:39 | Outpatient (CLI) | payer MEDICARE, SELFPAY ==
--- NOTE | 2022-02-01 | DI.US_ITS ---
Exam(s) US CAROTID EXAM: US CAROTID CLINICAL HISTORY: SYNCOPE,R 55. TECHNIQUE: Ultrasound carotids performed using grayscale, color-flow, and spectral Doppler imaging. COMPARISON: None FINDINGS: There is both calcified and noncalcified plaque at the carotid bifurcations and proximal internal car otid arteries bilaterally. However, there are no significantly elevated velocities indicating that t he amount of stenosis is less than 40 percent bilaterally. Body habitus prevented visualization of the internal carotid arteries in the upper neck (prior to ent ering the skull base) Antegrade flow is demonstrated in both vertebral arteries. Measurements: R Bulb: 69.4cm/s PS / 20.6cm/s ED R CCA: 50.6cm/s PS / 18.7cm/s ED R ECA: 82cm/s PS / 0cm/s ED R ICA Prox: 90.5cm/s PS / 23.1cm/s ED R ICA Mid: 49.4cm/s PS / 13.4cm/s ED R ICA Distal: PS / ED R Vert: 43.1cm/s PS / 16.2cm/s ED R SVR: 1.8 R DVR: 1.2 L Bulb: 66.9cm/s PS / 15cm/s ED L CCA: 57.65cm/s PS / 18.75cm/s ED L ECA: 60.2cm/s PS / 0cm/s ED L ICA Prox: 74.4cm/s PS / 24.3cm/s ED L ICA Mid: 54.8cm/s PS / 27.6cm/s ED L ICA Distal: PS / ED L Vert: 42cm/s PS / 12.7cm/s ED L SVR:1 L DVR:1.2 IMPRESSION: No evidence for hemodynamically significant carotid stenosis. Amount of stenosis estimated at less t nunez 40 percent bilaterally. Antegrade flow demonstrated in both vertebral arteries. Criteria for Carotid Stenosis: Normal: ICA PSV <125 cm/s no plaque or intimal thickening is visible. <50% stenosis: ICA PSV <125 cm/s and plaque or intimal thickening is visible. 50-69% stenosis: ICA PSV is 125-250 cm/s and plaque is visible. >70% stenosis to near occlusion: ICA PSV >250 cm/s with visible plaque and luminal narrowing. DATA REPOSITORY:
--- NOTE | 2022-02-01 14:45 | DI.US_ITS ---
APPROVED REPORT EXAM: Comprehensive 2D, Doppler, and color-flow Echocardiogram Patient Location: Out-Patient Machine Farmworker: Maite Smith RDCS (AE) Indications: Syncope, CAD Other Information Study Quality: Adequate Conclusion Normal left ventricular wall thickness and chamber size. Estimated ejection fraction is 55%. Wall m otion is normal Normal right ventricular size and systolic function Both atria are normal in size The aortic valve is sclerotic and trileaflet without stenosis or regurgitation There is mitral annular calcification, mild to moderate mitral regurgitation Normal tricuspid valve with trace to mild regurgitation. Estimated right ventricular systolic pressu re is 22 mmHg Wall motion Left Ventricle The left ventricle is normal size. The left ventricular systolic function is normal. The left ventric ular ejection fraction is within the normal range. There is normal left ventricular wall thickness. T here is normal LV segmental wall motion. There is no ventricular septal defect visualized. LVEF is 55 %. Right Ventricle The right ventricle is normal size. The right ventricular systolic function is normal .The RVSP is 21 .8mmHg. Atria The left atrium size is normal. The right atrium size is normal. The interatrial septum is intact wit h no evidence for an atrial septal defect. Aortic Valve The Aortic valve is sclerotic. Aortic valve is trileaflet. There is no aortic valvular stenosis. No a ortic regurgitation is present. Mitral Valve Mild mitral annular calcification. No evidence of mitral valve stenosis. Mild to moderate mitral regu rgitation. Tricuspid Valve The tricuspid valve is normal in structure. There is no tricuspid valve stenosis. Trace to mild tricu spid regurgitation. Pulmonic Valve The pulmonary valve is normal in structure. There is no pulmonic valvular stenosis. There is no pulmo jennie valvular regurgitation. Great Vessels The aortic root is normal in size. The ascending aorta is normal in size. Ascending aorta is not well visualized. IVC is normal in size and collapses >50% with inspiration. Pericardium There is no pericardial effusion. 2D Dimensions IVSD d PLAX 1.01 cm F: 0.6-1.0 LV Vol A2C d MOD 95.3 mL LVPW d PLAX 1.01 cm F: 0.6 - 1.0 LV Vol A4C d MOD 92.7 mL LVID d PLAX 5.01 cm F: 3.8 - 5.2 LA vol/ BSA A2C s A-L 30.6 mL/m2 LVDs 3.40 cm F: 2.2 - 3.5 LA vol/ BSA A4C s A-L 28.3 mL/m2 Ao Root d 3.08 cm F: 2.7 - 3.3 LA Vol/ BSA Biplane s A-L 30.5 mL/m2 Ao Asc Diam d 3.16 cm F: 2.3 - 3.1 LA Area A4C s MOD 18.15 cm2 LV EF Teichholz 58.8 % LA Area A2C s MOD 18.20 cm2 LVEF (Lerma's) 55.04 % F: 54 - 74 LV EF A4C MOD 55.0 % LV Volume 74.46 mL F: 46 - 106 LV EF A2C MOD 55.2 % LV Volume Index 40.68 mL/m2 F: 29 - 61 LV EF Biplane MOD 55.0 % LV Vol Biplane MOD 96.3 mL SV 53.03 mL FS 31.25 % SV Index 28.94 mL/m2 LV Diastology E/A Ratio 0.9 MV E Vmax 1.08 (0.4-1.3 m/s) MV A Vmax 1.25 (0.4-1.3 m/s) MV E/A Ratio 0.83 Aortic Valve LVOT Area 3.39 cm2 AoV Area Vmax 2.16 cm2 LVOT Vmax 0.94 m/s AoV Area/ BSA (Vmax) 1.18 cm2/m2 LVOT Mean Dago. 0.63 m/s SHAKIRA Mean Dago. 2.11 cm2 LVOT Peak Grad 3.5 mmHg SHAKIRA Mean Dago. Index 1.15 cm2/m2 LVOT Mean Grad 1.9 mmHg LVOT VTI 0.214 m LVOT Diam s 2.05 cm AoV Vmax 1.47 m/s Velocity Ratio 0.63 AoV Mean Dago. 1.01 m/s AoV Peak Grad 8.7 mmHg LVOT SV 72.51 mL AoV Mean Grad 4.6 mmHg AoV VTI 0.303 m AoV Area VTI 2.39 cm2 AoV Area/ BSA (VTI) 1.31 cm/m2 Mitral Valve MV DT 371 (160-240 msec) MV PHT 107 msec MV Area PHT 2.05 cm2 MV VTI 0.525 m MV Area VTI 1.38 (4.0-6.0 cm2) Pulmonary Valve PV Vmax 1.03 (0.5-1.5 m/s) RVOT Peak Gr. 2.11 mmHg PV Peak Grad 4.2 mmHg RVOT Mean Gr. 1.05 mmHg PV Mean Grad 2.3 mmHg RVOT VTI 0.153 m PV VTI 0.188 m RVOT Vmax 0.73 m/s Tricuspid Valve TR Peak Grad 18.7 mmHg TR Vmax 2.17 m/s RA Pressure 3.00 mmHg RVSP (TR) 21.8 mmHg
== END ==
PROVIDERS: PCP Physician Assistant; Visit Provider Physician Assistant
DX: R55 Syncope and collapse (principal)
CPT/HCPCS: 93306; 93880

== ENCOUNTER → 2022-02-08 01:00 | Outpatient (CLI) | payer MEDICARE, SELFPAY ==
--- NOTE | 2022-02-08 | DI.NM_ITS ---
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 Indications: Atypical chest pain. AFIB. Dyspnea. H/O CAD. Medical History Medical History: HTN. HLD. Prolonged [place]. AFIB. Peripheral venous insuff. Cardiac Medications: Nitroglycerin. Metoprolol succinate. Aspirin. Amlodipine. Allergies: Codeine. Morphine. Atorvastatin. Isosorbide. Lisinopril. Rosuvastatin. Pravastatin. Simvas tatin. Cardiac Risk Factors: Family hx. PVD. CVD. HTN. Former smoker. HLD. Previous Cardiac Procedures: LESLI - 10/2010. PCI, no stent 06/2015. Pretest Chest Pain Characteristics: None Exercise History: Indeterminate Physical Disabilities: None. Lung Sounds: Clear to auscultation. Heart Sounds: Irregular Stress Test Details Test: Exercise stress converted to pharmacologic stress due to failure to obtain a diagnostic stress test. Reason for pharmacologic stress test: changed from exercise stress test due to inability to reach t arget heart rate. Nuclear Acquisition: Rest Tc-99m/Stress Tc-99m 1 day Rest Isotope: Tc-99m Sestamibi. Dose: 10.8 Date: 02/08/2022 Injection Time: 0845 Stress Isotope: Tc-99m Sestamibi. Dose: 33 Date: 02/08/2022 Injection Time: 1010 HR Resting HR Supine: 84 bpm Max Heart Rate (APMHR): 141.959541 bpm Resting HR Standin bpm Target HR (85% APMHR): 119.154988 bpm Max HR Achieved: 130 bpm % of APMHR: 92.20 Recovery HR: 86 bpm HR response to stress: Normal HR response to stress BP Resting BP Supine: 154/80 mmHg Resting BP Standin/80 mmHg Max BP: 158/78 mmHg Recovery BP: 148/78 mmHg BP response to stress: Normal blood pressure response to stress. ECG Resting ECst degree AV block Ectopy: PACs Stress ECst degree AV block ST Change: No significant ST segment changes noted Arrhythmia: APC's, VPC's Recovery ECst degree AV block Recovery ST Change: No significant ST segment changes noted Recovery Arrhythmia: APC, VPC Clinical Reason for Termination: Fatigue, Dyspnea Stress Symptoms: Dyspnea, General Fatigue Highest Stage Reached: Stage 2: 2.5 mph at 12% grade. Angina Score: Non-Limiting Rate Pressure Product: 96357 Stress ECG Conclusion 1. Resting electrocardiogram showed sinus rhythm with frequent atrial premature beats 2. Patient underwent testing using a combination of low-level exercise and pharmacologic stress with regadenoson 3. Peak heart rate achieved was 92% of predicted for age 4. The electrocardiographic portion of the test showed no evidence of myocardial ischemia 5. See MPI report Stress Test Summary STAGE Time (mins) Speed (mph) Grade (%) HR BP SpO2 SYMPTOMS METS Supine 84 154/80 Standing 79 152/80 1 3 1.7 10 112 158/70 4.5 1 min post Lexiscan injection 109 142/84 Chest tightness 3 min post Lexiscan injection 100 138/82 6 min post Lexiscan injection 86 148/78 96 Symptom subsided. After 6 minutes on treadmill pt reported severe dyspnea and fatigue and stated she needed to stop skip admill. Transitioned pt from Connor protocol to a walking Lexiscan. Treadmill speed 1 mph, 0% incline. l MPI Conclusion Myocardial perfusion is normal. There is no evidence of ischemia or prior infarction EF 53%, normal wall motion Radiologist Interpretation Radiologist agrees with Line Puller's Interpretation. Radiologist Interpretation by: Felecia Castro MD Interpretation Date/Time: 02/08/2022 15:57:42
[2022-02-08] MEDS: Regadenoson 0.4 MG/5 ML SYR IVP (11:05)
== END ==
PROVIDERS: PCP Physician Assistant; Visit Provider Physician Assistant
DX: R07.89 Other chest pain (principal); I48.91 Unspecified atrial fibrillation; R06.09 Other forms of dyspnea
CPT/HCPCS: 78452; 93016; 93018; 93017; J2785

== ENCOUNTER 2022-04-19 09:08 | Outpatient (CLI) | payer MEDICARE, SELFPAY | END 2022-04-19 09:09 | disposition home or self-care (01) | PROVIDERS: PCP Physician Assistant; Visit Provider Physician Assistant | DX: I48.91 Unspecified atrial fibrillation (principal) | CPT/HCPCS: 93270 ==

== ENCOUNTER 2022-05-14 09:09 | Outpatient (CLI) | payer MEDICARE, SELFPAY ==
--- NOTE | 2022-05-14 10:32 | W.CARDEVENT ---
Date of service: 05/14/22 Time of Service: 10:32 Cardiac Event Recorder Referring Provider:: Nahun Eden Indications:: Palpitations Cardiac Event Note: This is a 30-day event monitor ordered for palpitations Rhythm throughout was sinus with an average heart rate of 76. Minimum was 58. There was no significant tachycardia There were rare atrial premature beats There were no significant ventricular dysrhythmias There was no atrial fibrillation, no SVT, no high-grade AV block, no pauses greater than 3 seconds Multiple patient symptoms were reported none of which corresponded to any dysrhythmia
== END 2022-05-14 09:10 | disposition home or self-care (01) ==
LOC: CARDOPNVT 09:09
PROVIDERS: PCP Physician Assistant; Visit Provider Internal Medicine Cardiovascular Disease
DX: R00.2 Palpitations (principal)
CPT/HCPCS: 93272

== ENCOUNTER 2022-06-19 10:21 | Outpatient (CLI) | payer MEDICARE, SELFPAY ==
--- NOTE | 2022-06-19 10:15 | RT.EKG_ITS ---
APPROVED REPORT Exam: Resting ECG Reason for Exam: cardiac evaluation Patient Location: O HR:66 bpm ECG Measurements Heart Rate 66 AXIS OK 187 P -17 QRSd 100 QRS -14 QT 415 T 7 QTc 435 Conclusion Sinus rhythm...normal P axis, V-rate 50- 99 Low voltage, precordial leads...precordial leads <1.0mV Otherwise normal
== END 2022-06-19 10:22 | disposition home or self-care (01) ==
LOC: DI.CARD 10:22
PROVIDERS: PCP Physician Assistant; Visit Provider Internal Medicine Cardiovascular Disease
DX: I25.10 Atherosclerotic heart disease of native coronary artery without angina pectoris (principal)
CPT/HCPCS: 93010

== ENCOUNTER → 2022-06-19 10:21 | Outpatient (BNVA) | payer MEDICARE, SELFPAY | PROVIDERS: PCP Physician Assistant; Visit Provider Internal Medicine Cardiovascular Disease | DX: I25.10 Atherosclerotic heart disease of native coronary artery without angina pectoris (principal); I25.119 Atherosclerotic heart disease of native coronary artery with unspecified angina pectoris; I10 Essential (primary) hypertension | CPT/HCPCS: 93005; 99214 ==

== ENCOUNTER 2023-01-15 09:18 | Outpatient (CLI) | payer MEDICARE, SELFPAY ==
--- NOTE | 2023-01-15 09:15 | RT.EKG_ITS ---
APPROVED REPORT Exam: Resting ECG Reason for Exam: chest pain Patient Location: O HR:64 bpm ECG Measurements Heart Rate 64 AXIS IA 189 P -10 QRSd 97 QRS -19 QT 428 T -2 QTc 442 Conclusion Sinus rhythm...normal P axis, V-rate 50- 99 Low voltage, precordial leads...precordial leads <1.0mV Left ventricular hypertrophy...multiple voltage criteria
== END 2023-01-15 09:19 | disposition home or self-care (01) ==
LOC: DI.CARD 09:25
PROVIDERS: PCP Physician Assistant; Visit Provider Internal Medicine Cardiovascular Disease
DX: R07.9 Chest pain, unspecified (principal)
CPT/HCPCS: 93010

== ENCOUNTER → 2023-01-15 09:18 | Outpatient (BNVA) | payer MEDICARE, SELFPAY | PROVIDERS: PCP Physician Assistant; Referring Provider Physician Assistant; Visit Provider Internal Medicine Cardiovascular Disease | DX: Z95.5 Presence of coronary angioplasty implant and graft (principal); I25.10 Atherosclerotic heart disease of native coronary artery without angina pectoris; I10 Essential (primary) hypertension | CPT/HCPCS: 93005; 99214 ==

== ENCOUNTER → 2023-03-04 00:37 | Outpatient (CLI) | payer MEDICARE, SELFPAY ==
--- NOTE | 2023-03-04 06:15 | DI.NM_ITS ---
APPROVED REPORT Exam: Pharmacologic Patient Location: Out-Patient Room/Bed: Stress Nurse: Arnie Hernandez RN Ordering Provider:MERNA PICKARD, Contact Number: BMI: 33.65 Baseline Rhythm: Sinus Rhythm Medical History Medical History: CAD s/p stent, Obesity , Angina, hypothyroidism, Peripheral venous insufficiency. Cardiac Medications: Nadolol Allergies: TG, ASA, Amlodipine, Metoprolol. Cardiac Risk Factors: Obesity, HTN, Hyperlipidemia, PVD, CVD, former smoker. Previous Cardiac Procedures: Stent placement. Pretest Chest Pain Characteristics: No chest pain Exercise History: Sedentary Physical Disabilities: None Lung Sounds: Rales bilateral bases. Heart Sounds: Regular Stress Test Details Test: Pharmacologic stress testing performed using 0.4 mg of regadenoson per 5 mL given IV over 10 s econds. Reason for pharmacologic stress test: physical limitation. Nuclear Acquisition: Rest Tc-99m/Stress Tc-99m 1 day Rest Isotope: Tc-99m Sestamibi. Dose: 10.0 Date: 03/04/2023 Injection Time: 0845 Stress Isotope: Tc-99m Sestamibi. Dose: 31.0 Date: 03/04/2023 Injection Time: 1015 HR Resting HR Supine: 62 bpm Max Heart Rate (APMHR): 140 bpm Target HR (85% APMHR): 119 bpm Max HR Achieved: 81 bpm % of APMHR: 58 Recovery HR: 70 bpm HR response to stress: Normal HR response to stress BP Resting BP Supine: 122/90 mmHg Max BP: 124/102 mmHg Recovery BP: 122/88 mmHg BP response to stress: Normal blood pressure response to stress. ECG Resting ECG: Sinus Rhythm Ectopy: none Stress ECG: Sinus Rhythm ST Change: No significant ST segment changes noted Arrhythmia: None Recovery ECG: Sinus Rhythm Recovery ST Change: No significant ST segment changes noted Recovery Arrhythmia: None Clinical Stress Symptoms: Dyspnea, lightheadedness, c/o minimal jaw discomfort that resolved spontaniously. Rate Pressure Product: [id number] Stress ECG Conclusion 1. Electrocardiogram was within normal limits 2. Patient underwent testing using pharmacologic stress with regadenoson 3. Peak heart rate achieved was 58% of predicted for age 4. The electrocardiographic portion of the test was nondiagnostic 5. See MPI report Stress Test Summary STAGE HR BP SpO2 Symptoms NOTES Supine 62 122/90 none 1 min post Lexiscan injection 71 124/102 Moderate SOB, lightheaded.73 3 min post Lexiscan injection 73 122/90 95 none 6 min post Lexiscan injection 70 122/88 none MPI Conclusion Myocardial perfusion is normal. There is no ischemia or evidence of prior infarction Ejection fraction is 55% with normal wall motion
[2023-03-04] MEDS: Regadenoson 0.4 MG/5 ML SYR IVP (11:51)
== END ==
PROVIDERS: PCP Physician Assistant; Visit Provider Internal Medicine Cardiovascular Disease
DX: I25.10 Atherosclerotic heart disease of native coronary artery without angina pectoris (principal); R07.9 Chest pain, unspecified
CPT/HCPCS: 78452; 93016; 93018; 93017; J2785

== ENCOUNTER → 2023-08-20 11:00 | Outpatient (BNVA) | payer MEDICARE, SELFPAY | PROVIDERS: PCP Physician Assistant; Referring Provider Physician Assistant; Visit Provider Internal Medicine Cardiovascular Disease | DX: I25.10 Atherosclerotic heart disease of native coronary artery without angina pectoris (principal) | CPT/HCPCS: 99213 ==

== ENCOUNTER 2024-05-06 11:21 | Outpatient (REF) | payer OTHER, SELFPAY ==
[2024-05-06 15:06] LABS: ALT 19 U/L (14-59); AST 17 U/L (15-37); Alkaline Phosphatase 75 U/L (46-116); Anion Gap 8.4 mmol/L (3-11); BUN 11 mg/dL (7-18); Bilirubin, Total 0.52 mg/dL (0.2-1.0); CO2 29.6 mmol/L (21.0-32.0); CREATININE 0.7 mg/dL (0.55-1.02); Calcium 9.6 mg/dL (8.5-10.1); Chloride 106 mmol/L (98-107); Estimated GFR 86.83 (mL/min/1.73m2); Glucose 96 mg/dL (74-106); Potassium 4.3 mmol/L (3.5-5.1); Sodium 144 mmol/L (136-145); TSH 3.82 uIU/mL (0.36-3.74); Total Protein 7.6 g/dL (6.4-8.2)
[2024-05-06 15:10] LABS: Hemoglobin A1C 5.7 % (<5.7)
== END 2024-05-06 11:22 | disposition home or self-care (01) ==
LOC: NCHCN 11:21
PROVIDERS: PCP Physician Assistant; Visit Provider Physician Assistant
DX: E78.5 Hyperlipidemia, unspecified (principal); E03.9 Hypothyroidism, unspecified; R73.03 Prediabetes
CPT/HCPCS: 80053; 83036; 84443